=== PATIENT | male | born 1995 | race Caucasian/White ===

== ENCOUNTER 2019-02-02 10:53 | Emergency (ER) | payer SELFPAY ==
[~2019-02-02] VITALS: Ht 172.7 cm; Wt 71.4 kg
[2019-02-02 11:20] VITALS: BP 143/66
== END 2019-02-02 13:01 | disposition home or self-care (01) ==
LOC: ED 12:44
DX: N34.2 Other urethritis (principal); F17.200 Nicotine dependence, unspecified, uncomplicated
CPT/HCPCS: 87491; 87591; 96372; 99283; J0696